=== PATIENT | male | born 2000 | race American Indian/Alaskan Native ===

== ENCOUNTER 2020-10-05 01:16 | Emergency (ER) | payer SELFPAY ==
--- NOTE | 2020-10-05 01:31 | Emergency Department Report ---
ED General Adult HPI - General Stated complaint: SHORTNESS OF BREATH Time Seen by Provider: 10/05/20 01:26 - History of Present Illness Initial comments: 20-year-old -Citizen Of The [place] male patient presents with complaints of sudden onset of shortness of breath times a few hours. He states history of asthma, however states that he has not had any asthma exacerbations in years. He admits to a mild cough and chest tightness, but denies any mucus production, hemoptysis, leg pain/swelling, fever/chills/sweats, nausea/vomiting/diarrhea, recent known sick contacts, or loss of smell/taste. Patient states he is wheezing and that this feels like his asthma - Related Data Previous Rx's Medication Instructions Recorded Last Taken Type Albuterol Mdi (or & Nicu Only) 2 puff IH Q4H PRN #8.5 gram 10/05/20 Unknown Rx [ProAir HFA Inhaler] Amoxicillin [Trimox CAP] 1,000 mg PO Q8H 7 Days #21 capsule 10/05/20 Unknown Rx Azithromycin [Zithromax Z-PAL] 0 mg PO DAILY #6 tab 10/05/20 Unknown Rx Prednisone [predniSONE 10 mg 10 mg PO .TAPER #1 tab.ds.pk 10/05/20 Unknown Rx (6-Day Pack, 21 Tabs)] ED Review of Systems ROS: Stated complaint: SHORTNESS OF BREATH Other details as noted in HPI Constitutional: denies: chills, diaphoresis, fever, malaise, weakness ENT: denies: throat pain Respiratory: cough, shortness of breath Cardiovascular: as per HPI. denies: edema Gastrointestinal: denies: nausea, vomiting, diarrhea Skin: denies: change in color ED Past Medical Hx - Medications Home Medications: Home Medications Medication Instructions Recorded Confirmed Last Taken Type Albuterol Mdi (or & Nicu Only) 2 puff IH Q4H PRN #8.5 gram 10/05/20 Unknown Rx [ProAir HFA Inhaler] Amoxicillin [Trimox CAP] 1,000 mg PO Q8H 7 Days #21 capsule 10/05/20 Unknown Rx Azithromycin [Zithromax Z-PAL] 0 mg PO DAILY #6 tab 10/05/20 Unknown Rx Prednisone [predniSONE 10 mg 10 mg PO .TAPER #1 tab.ds.pk 10/05/20 Unknown Rx (6-Day Pack, 21 Tabs)] ED Physical Exam - General General appearance: alert, in no apparent distress - Head Head exam: Present: atraumatic, normocephalic - Eye Eye exam: Present: normal appearance - ENT ENT exam: Present: mucous membranes moist - Neck Neck exam: Present: normal inspection, full ROM - Respiratory Respiratory exam: Present: wheezes, rhonchi. Absent: respiratory distress, rales, stridor, chest wall tenderness - Cardiovascular Cardiovascular Exam: Present: regular rate, normal rhythm. Absent: systolic murmur, diastolic murmur, rubs, gallop - GI/Abdominal GI/Abdominal exam: Present: soft. Absent: tenderness - Back Exam Back exam: Present: normal inspection - Neurological Exam Neurological exam: Present: alert, oriented X3, normal gait - Psychiatric Psychiatric exam: Present: normal affect, normal mood - Skin Skin exam: Present: warm, dry, intact, normal color. Absent: rash, cyanosis, diaphoretic, erythema, petechiae ED Course Vital Signs 10/05/20 10/05/20 01:31 04:17 Temperature 98.1 F 98 F Pulse Rate 92 H 100 H Respiratory 16 16 Rate Blood Pressure 97/73 102/78 [Left] O2 Sat by Pulse 97 100 Oximetry ED Medical Decision Making - Lab Data Result diagrams: 10/05/20 02:16 10/05/20 02:16 Lab Results 10/05/20 10/05/20 Range/Units 02:16 02:16 WBC 7.5 (4.5-11.0) K/mm3 RBC 4.78 (3.65-5.03) M/mm3 Hgb 14.9 (11.8-15.2) gm/dl Hct 43.3 (35.5-45.6) % MCV 91 (84-94) fl MCH 31 (28-32) pg MCHC 34 (32-34) % RDW 13.1 L (13.2-15.2) % Plt Count 264 (140-440) K/mm3 Lymph % (Auto) 33.0 (13.4-35.0) % [place] % (Auto) 12.0 H (0.0-7.3) % Eos % (Auto) 10.5 H (0.0-4.3) % Baso % (Auto) 1.0 (0.0-1.8) % Lymph # (Auto) 2.5 (1.2-5.4) K/mm3 [place] # (Auto) 0.9 H (0.0-0.8) K/mm3 Eos # (Auto) 0.8 H (0.0-0.4) K/mm3 Baso # (Auto) 0.1 (0.0-0.1) K/mm3 Seg Neutrophils % 43.5 (40.0-70.0) % Seg Neutrophils # 3.3 (1.8-7.7) K/mm3 Sodium 140 (137-145) mmol/L Potassium 4.4 (3.6-5.0) mmol/L Chloride 104.1 (98-107) mmol/L Carbon Dioxide 24 (22-30) mmol/L Anion Gap 16 mmol/L BUN 10 (9-20) mg/dL Creatinine 0.8 (0.8-1.3) mg/dL Estimated GFR > 60 ml/min BUN/Creatinine Ratio 13 % Glucose 105 H (75-100) mg/dL Calcium 9.1 (8.4-10.2) mg/dL Total Bilirubin 0.50 (0.1-1.2) mg/dL AST 51 H (5-40) units/L ALT 98 H (7-56) units/L Alkaline Phosphatase 62 (35-129) units/L Total Protein 7.1 (6.3-8.2) g/dL Albumin 4.2 (3.9-5) g/dL Albumin/Globulin Ratio 1.4 % - Radiology Data Radiology results: report reviewed CHEST 2 VIEWS INDICATION: shortness of breath, abnormal breath sounds. COMPARISON: None FINDINGS: SUPPORT DEVICES: None. HEART: Within normal limits. LUNGS/PLEURA: Minimal patchy left basilar airspace disease with otherwise clear lungs. No pneumothorax. ADDITIONAL FINDINGS: None. IMPRESSION: 1. Pulmonary findings as above. - Medical Decision Making 20-year-old -Citizen Of [place] male patient presents with complaints of sudden onset of shortness of breath times a few hours. He states history of asthma, however states that he has not had any asthma exacerbations in years. He admits to a mild cough and chest tightness, but denies any mucus production, hemoptysis, leg pain/swelling, fever/chills/sweats, nausea/vomiting/diarrhea, recent known sick contacts, or loss of smell/taste. Patient states he is w heezing and that this feels like his asthma Diffuse wheezing or rhonchi are noted on exam. Chest x-ray shows the following: Minimal patchy left basilar airspace disease with otherwise clear lungs. Will treat for bacterial bronchitis. CBC is normal. Patient given DuoNeb and Decadron-states improvement in shortness of breath. He is well-appearing stable discharge home. Strict return precautions were discussed in detail with patient who verbalized understanding. Patient to follow-up with primary care provider in 3 to 5 days. Critical care attestation.: If time is entered above; I have spent that time in minutes in the direct care of this critically ill patient, excluding procedure time. ED Disposition Clinical Impression: Asthma with acute exacerbation, Acute bacterial bronchitis Community acquired pneumonia Qualifiers: Laterality: left Lung location: upper lobe of lung Qualified Code(s): J18.9 - Pneumonia, unspecified organism Disposition: - TO HOME OR SELFCARE Is pt being admited?: No Condition: Stable Instructions: Asthma, Adult, Community-Acquired Pneumonia, Adult, Acute Bronchitis (ED), Bacterial Pneumonia (ED) Prescriptions: Prednisone [predniSONE 10 mg (6-Day Pack, 21 Tabs)] 10 mg PO .TAPER #1 tab.ds.pk Albuterol Mdi (or & Nicu Only) [ProAir HFA Inhaler] 2 puff IH Q4H PRN #8.5 gram PRN Reason: Shortness Of Breath Amoxicillin [Trimox CAP] 1,000 mg PO Q8H 7 Days #21 capsule Azithromycin [Zithromax Z-PAL] 0 mg PO DAILY #6 tab Referrals: [facility] [Provider Group] - 3-5 Days
--- NOTE | 2020-10-05 02:00 | XRay Report ---
CHEST 2 VIEWS INDICATION: shortness of breath, abnormal breath sounds. COMPARISON: None FINDINGS: SUPPORT DEVICES: None. HEART: Within normal limits. LUNGS/PLEURA: Minimal patchy left basilar airspace disease with otherwise clear lungs. No pneumothor ax. ADDITIONAL FINDINGS: None. IMPRESSION: 1. Pulmonary findings as above. Signer Name: Chiki Lambert MD Signed: 10/05/2020 1:56 AM Workstation Name: [id number]
[2020-10-05] MEDS ORDERED: IPRATROPIUM/ALBUTEROL SULFATE 3 ML AMPUL.NEB IH ONE (02:05)
[2020-10-05] MEDS ORDERED: dexAMETHasone 20 MG/5 ML VIAL IV ONE (02:05)
[2020-10-05 02:37] LABS: Basophils # (Auto) 0.1 K/mm3 (0.0-0.1); Eosinophils # (Auto) 0.8 K/mm3 (0.0-0.4); Eosinophils % (Auto) 10.5 % (0.0-4.3); Hematocrit 43.3 % (35.5-45.6); Hemoglobin 14.9 gm/dl (11.8-15.2); Lymphocytes # (Auto) 2.5 K/mm3 (1.2-5.4); Mean Corpuscular HGB Conc 34 % (32-34); Mean Corpuscular Volume 91 fl (84-94); Monocytes # (Auto) 0.9 K/mm3 (0.0-0.8); Platelet Count 264 K/mm3 (140-440); Red Blood Count 4.78 M/mm3 (3.65-5.03); Red Cell Distribution Width 13.1 % (13.2-15.2)
[2020-10-05 02:59] LABS: Alanine Aminotransferase 98 units/L (7-56); Albumin 4.2 g/dL (3.9-5); BUN/Creatinine Ratio 13; Blood Urea Nitrogen 10 mg/dL (9-20); Calcium 9.1 mg/dL (8.4-10.2); Hemolysis Index 36
[2020-10-05 04:18] VITALS: BP 102/78
== END 2020-10-05 04:16 | disposition home or self-care (01) ==
LOC: ED 01:16
DX: J44.1 Chronic obstructive pulmonary disease with (acute) exacerbation (principal); J18.9 Pneumonia, unspecified organism
CPT/HCPCS: 36415; 71046; 80053; 85025; 96374; 99284; J1100

== ENCOUNTER 2021-07-09 02:39 | Emergency (ER) | payer SELFPAY ==
[2021-07-09 04:16] VITALS: BP 126/78
--- NOTE | 2021-07-09 04:45 | XRay Report ---
CHEST 2 VIEWS INDICATION: cough and maria l. COMPARISON: 10/05/2020 FINDINGS: Support devices: None. Heart: Within normal limits. Lungs/Pleura: No acute air space or interstitial disease. No significant pleural effusion. IMPRESSION: No acute findings. Signer Name: Mike Garza MD Signed: 07/09/2021 4:41 AM Workstation Name: [id number]
[2021-07-09] MEDS ORDERED: ALBUTEROL 2.5 MG/3 ML NEBU IH ONE (08:04)
[2021-07-09] MEDS ORDERED: predniSONE 20 MG TAB PO ONE (08:04)
--- NOTE | 2021-07-09 08:10 | Emergency Department Report ---
- General Chief Complaint: Adult Asthma Stated Complaint: SHORTNESS OF BREATH Time Seen by Provider: 07/09/21 08:00 Source: patient Mode of arrival: Ambulatory Limitations: No Limitations - History of Present Illness Initial Comments: The patient was evaluated in the emergency department for symptoms described in the history of present illness. He/she was evaluated in the context of the global COVID-19 pandemic, which necessitated consideration that the patient might be at risk for infection with the virus that causes COVID-19. Institutional protocols and algorithms that pertain to the evaluation of patients at risk for COVID-19 are in a state of rapid change based on information released by regulatory bodies including the CDC and federal and state organizations. These policies and algorithms were followed during the patient's care in the emergency department. Please note that these policies, procedures and recommendations changed on a rapid basis. 21-year-old -[place] male presents to the emergency room stating he has some shortness of breath and wheezing that started about 145 this morning. Patient admits to sore throat nasal congestion and runny nose. Patient states he is unvaccinated and is scheduled for a Covid test at 11. Patient states he had asthma as a child but has not needed any medication in the last 10 years. Patient is unaware of any exposure. He has no known drug allergies and takes no medications on a daily basis. MD Complaint: cough, sore throat, rhinorrhea, nasal congestion -: This morning Time: 01:45 Severity: mild Severity scale (0 -10): 3 - Related Data Previous Rx's Medication Instructions Recorded Last Taken Type Albuterol Mdi (or & Nicu Only) 2 puff IH Q4H PRN #8.5 gram 10/05/20 Unknown Rx [ProAir HFA Inhaler] Amoxicillin [Trimox CAP] 1,000 mg PO Q8H 7 Days #21 capsule 10/05/20 Unknown Rx Azithromycin [Zithromax Z-PAL] 0 mg PO DAILY #6 tab 10/05/20 Unknown Rx Prednisone [predniSONE 10 mg 10 mg PO .TAPER #1 tab.ds.pk 10/05/20 Unknown Rx (6-Day Pack, 21 Tabs)] Albuterol Sulfate [Proventil Hfa] 6.7 gm IH QID PRN #1 hfa.aer.ad 07/09/21 Unknown Rx Azithromycin [Zithromax Z-PAL] 0 mg PO DAILY #6 tab 07/09/21 Unknown Rx Prednisone [predniSONE 5 mg (6-Day 5 mg PO .TAPER #1 tab.ds.pk 07/09/21 Unknown Rx Pack, 21 Tabs)] Allergies Allergy/AdvReac Type Severity Reaction Status Date / Time trevor Allergy Swelling Uncoded 07/09/21 04:24 ED Review of Systems ROS: Stated complaint: SHORTNESS OF BREATH Other details as noted in HPI Comment: All other systems reviewed and negative ED Past Medical Hx - Past Medical History Previous Medical History?: Yes Hx Asthma: Yes - Surgical History Past Surgical History?: No - Social History Smoking Status: Current Every Day Smoker Substance Use Type: None - Medications Home Medications: Home Medications Medication Instructions Recorded Confirmed Last Taken Type Albuterol Mdi (or & Nicu Only) 2 puff IH Q4H PRN #8.5 gram 10/05/20 Unknown Rx [ProAir HFA Inhaler] Amoxicillin [Trimox CAP] 1,000 mg PO Q8H 7 Days #21 capsule 10/05/20 Unknown Rx Azithromycin [Zithromax Z-PAL] 0 mg PO DAILY #6 tab 10/05/20 Unknown Rx Prednisone [predniSONE 10 mg 10 mg PO .TAPER #1 tab.ds.pk 10/05/20 Unknown Rx (6-Day Pack, 21 Tabs)] Albuterol Sulfate [Proventil Hfa] 6.7 gm IH QID PRN #1 hfa.aer.ad 07/09/21 Unknown Rx Azithromycin [Zithromax Z-PAL] 0 mg PO DAILY #6 tab 07/09/21 Unknown Rx Prednisone [predniSONE 5 mg (6-Day 5 mg PO .TAPER #1 tab.ds.pk 07/09/21 Unknown Rx Pack, 21 Tabs)] ED Physical Exam - General Limitations: No Limitations General appearance: alert, in no apparent distress - Head Head exam: Present: atraumatic, normocephalic - Eye Eye exam: Present: normal appearance - ENT ENT exam: Present: normal external ear exam - Neck Neck exam: Present: normal inspection, full ROM - Respiratory Respiratory exam: Present: wheezes (Right middle lung). Absent: accessory muscle use - Cardiovascular Cardiovascular Exam: Present: regular rate - GI/Abdominal GI/Abdominal exam: Present: soft, normal bowel sounds - Extremities Exam Extremities exam: Present: normal inspection - Back Exam Back exam: Present: normal inspection - Neurological Exam Neurological exam: Present: alert, oriented X3, normal gait - Psychiatric Psychiatric exam: Present: normal affect, normal mood - Skin Skin exam: Present: warm, dry, intact, normal color. Absent: rash ED Course Vital Signs 07/09/21 07/09/21 04:13 08:16 Temperature 98.4 F Pulse Rate 82 Respiratory 20 18 Rate Blood Pressure 126/78 O2 Sat by Pulse 97 97 Oximetry - Reevaluation(s) Reevaluation #1: 07/09/21 09:26 Patient reports he feels much better. ED Medical Decision Making - Radiology Data Radiology results: report reviewed [facility] [address] [place] [address] XRay Report Signed Patient: LILIBETH ANG MR#: [id number] : 2000 Acct:[id number] Age/Sex: 21 / M ADM Date: 07/09/21 Loc: ED Attending Dr: Ordering Physician: ROSALINDA ENCISO MD Date of Service: 07/09/21 Procedure(s): XR chest routine 2V Accession Number(s): [id number] cc: ROSALINDA ENCISO MD Fluoro Time In Minutes: CHEST 2 VIEWS INDICATION: cough and maria l. COMPARISON: 10/05/2020 FINDINGS: Support devices: None. Heart: Within normal limits. Lungs/Pleura: No acute air space or interstitial disease. No significant pleural effusion. IMPRESSION: No acute findings. Signer Name: Mike Garza MD Signed: 07/09/2021 4:41 AM Workstation Name: [id number] Transcribed By: ES Dictated By: Mike Garza MD Electronically Authenticated By: Mike Garza MD Signed Date/Time: 07/09/21440 DD/ [id number] TD/TT: - Medical Decision Making 21-year-old -[place] male presents to the emergency room stating he has some shortness of breath and wheezing that started about 145 this morning. Patient admits to sore throat nasal congestion and runny nose. Patient states he is unvaccinated and is scheduled for a Covid test at 11. Patient states he had asthma as a child but has not needed any medication in the last 10 years. Patient is unaware of any exposure. He has no known drug allergies and takes no medications on a daily basis. Chest x-ray was ordered by protocol and shows no acute abnormalities. Patient is in order prednisone albuterol nebulizer treatment and will be reassessed. Critical Care Time: Yes (30) Critical care attestation.: If time is entered above; I have spent that time in minutes in the direct care of this critically ill patient, excluding procedure time. ED Disposition Clinical Impression: Upper respiratory infection, Suspected COVID-19 virus infection Disposition: HOME / SELF CARE / HOMELESS Is pt being admited?: No Does the pt Need Aspirin: No Condition: Stable Additional Instructions: Your symptoms appear most consistent with a nonspecific viral syndrome. However, given this current pandemic, COVID-19 is in the differential of possibilities. I do recommend outpatient Covid 19 testing. In the meantime, isolate/quarantine yourself and stay away from anyone who is elderly, immunocompromised or chronically ill. You can use ibuprofen every 6-8 hours and Tylenol every 4-8 hours, using the dosing on the back of the bottle, as needed for any fever or body aches. Return to the emergency department with any worsening of your symptoms, development of chest pain or shortness of breath, or with any acute distress. Complete prednisone as prescribed. Use inhaler as needed. Follow-up with your primary care provider. Prescriptions: Prednisone [predniSONE 5 mg (6-Day Pack, 21 Tabs)] 5 mg PO .TAPER #1 tab.ds.pk Albuterol Sulfate [Proventil Hfa] 6.7 gm IH QID PRN #1 hfa.aer.ad PRN Reason: Wheezing Azithromycin [Zithromax Z-PAL] 0 mg PO DAILY #6 tab Referrals: PRIMARY CARE, [Primary Care Provider] - 3-5 Days [facility] [Provider Group] - 3-5 Days [facility] [Other] - 3-5 Days Forms: Work/School Release Form(ED)
== END 2021-07-09 09:24 | disposition home or self-care (01) ==
LOC: ED 02:39
DX: J06.9 Acute upper respiratory infection, unspecified (principal); J45.909 Unspecified asthma, uncomplicated; F17.200 Nicotine dependence, unspecified, uncomplicated; Z20.822 Contact with and (suspected) exposure to COVID-19; Z88.8 Allergy status to other drugs, medicaments and biological substances; Z79.899 Other long term (current) drug therapy
CPT/HCPCS: 71046; 94640; 99283; J7512